=== PATIENT | male | born 1950 | race Caucasian/White ===

== ENCOUNTER 2016-07-03 11:21 | Outpatient (CLI) | payer MEDICARE, MEDICAID | END 2016-07-03 11:22 | disposition home or self-care (01) | DX: Z86.718 Personal history of other venous thrombosis and embolism (principal); I26.99 Other pulmonary embolism without acute cor pulmonale; Z79.01 Long term (current) use of anticoagulants ==

== ENCOUNTER 2016-08-04 11:13 | Outpatient (CLI) | payer MEDICARE, MEDICAID ==
[2016-08-04 18:57] LABS: INR 2.1 (0.8-1.2); PT - PROTHROMBIN TIME 24.3 secs (9.9-12.6)
== END 2016-08-04 11:14 ==
LOC: LAB.F 11:13
PROVIDERS: ATTEND Pharmacist
DX: Z86.718 Personal history of other venous thrombosis and embolism (principal); I26.99 Other pulmonary embolism without acute cor pulmonale; Z79.01 Long term (current) use of anticoagulants
CPT/HCPCS: 36415; 85610

== ENCOUNTER 2016-09-04 13:12 | Outpatient (CLI) | payer MEDICARE, MEDICAID | END 2016-09-04 13:13 | disposition home or self-care (01) | DX: I26.99 Other pulmonary embolism without acute cor pulmonale (principal); Z79.01 Long term (current) use of anticoagulants; Z86.718 Personal history of other venous thrombosis and embolism ==

== ENCOUNTER 2016-09-15 09:10 | Outpatient (CLI) | payer MEDICARE, MEDICAID | END 2016-09-15 09:11 | disposition home or self-care (01) | DX: I26.99 Other pulmonary embolism without acute cor pulmonale (principal); Z79.01 Long term (current) use of anticoagulants; Z86.718 Personal history of other venous thrombosis and embolism ==

== ENCOUNTER 2016-10-13 09:26 | Outpatient (CLI) | payer MEDICARE, MEDICAID | END 2016-10-13 09:27 | DX: Z86.718 Personal history of other venous thrombosis and embolism (principal); I26.99 Other pulmonary embolism without acute cor pulmonale; Z79.01 Long term (current) use of anticoagulants ==

== ENCOUNTER 2016-12-01 13:46 | Outpatient (CLI) | payer MEDICARE, MEDICAID ==
[2016-12-01 18:36] LABS: INR 2.3 (0.8-1.2)
== END 2016-12-01 13:47 | disposition home or self-care (01) ==
LOC: LAB.S 13:46
PROVIDERS: ATTEND Pharmacist
DX: Z86.718 Personal history of other venous thrombosis and embolism (principal)
CPT/HCPCS: 36415; 85610

== ENCOUNTER 2017-01-12 12:13 | Outpatient (CLI) | payer MEDICARE, MEDICAID ==
[2017-01-12 18:37] LABS: INR 2.6 (0.8-1.2); PT - PROTHROMBIN TIME 29.1 secs (9.9-12.6)
== END 2017-01-12 12:14 | disposition home or self-care (01) ==
LOC: LAB.S 12:13
PROVIDERS: ATTEND Pharmacist
DX: I26.99 Other pulmonary embolism without acute cor pulmonale (principal)
CPT/HCPCS: 36415; 85610

== ENCOUNTER 2017-02-12 09:32 | Outpatient (CLI) | payer MEDICARE, MEDICAID ==
[2017-02-12 17:53] LABS: INR 2.5 (0.8-1.2)
== END 2017-02-12 09:33 | disposition home or self-care (01) ==
LOC: LAB.F 09:32
PROVIDERS: ATTEND Pharmacist
DX: Z86.718 Personal history of other venous thrombosis and embolism (principal)
CPT/HCPCS: 36415; 85610

== ENCOUNTER 2017-02-16 20:26 | Outpatient (CLI) | payer MEDICARE, MEDICAID ==
[2017-02-16 18:48] LABS: ALBUMIN/GLOBULIN RATIO 1.3 (1.0-2.2); BILIRUBIN,TOTAL 0.4 mg/dL (0.2-1.0); BUN - BLOOD UREA NITROGEN 43 mg/dL (6-20); CALCIUM 9.6 mg/dL (8.5-10.3); CARBON DIOXIDE - CO2 25 mmol/L (21-32); CHLORIDE 102 mmol/L (101-111); CHOL/HDL RATIO 5.8 (<5.0); CHOLESTEROL 139 mg/dL; CREATININE 1.9 mg/dL (0.6-1.2); GFR - MDRD 36 (>89); GLUCOSE 110 mg/dL (70-100); HDL CHOLESTEROL 24 mg/dL; LDL/HDL RATIO 2.3 (<3.6); POTASSIUM 4.4 mmol/L (3.5-5.0); SODIUM 137 mmol/L (135-145); TOTAL PROTEIN 7.4 g/dL (6.7-8.2); TRIGLYCERIDES 303 mg/dL; VLDL CHOLESTEROL 61 mg/dL
[2017-02-16 19:09] LABS: BASOPHILS # (AUTO) 0.1 10^3/uL (0.0-0.1); BASOPHILS % (AUTO) 0.8 %; EOSINOPHILS # (AUTO) 0.5 10^3/uL (0.0-0.7); EOSINOPHILS % (AUTO) 5.1 %; HCT - HEMATOCRIT 34.8 % (42.0-52.0); HGB - HEMOGLOBIN 11.2 g/dL (14.0-18.0); LYMPHOCYTES # (AUTO) 1.8 10^3/uL (1.5-3.5); LYMPHOCYTES % (AUTO) 18.2 %; MEAN CORPUSCULAR HEMOGLOBIN 28.7 pg (27.0-31.0); MEAN CORPUSCULAR HGB CONC 32.3 g/dL (32.0-36.0); MEAN CORPUSCULAR VOLUME 88.7 fL (80.0-94.0); MEAN PLATELET VOLUME 8.4 fL (7.4-11.4); MONOCYTES # (AUTO) 0.5 10^3/uL (0.0-1.0); NEUTROPHILS # (AUTO) 6.8 10^3/uL (1.5-6.6); NEUTROPHILS % (AUTO) 70.9 %; RED BLOOD COUNT 3.93 10^6/uL (4.70-6.10); RED CELL DISTRIBUTION WIDTH 16.4 % (12.0-15.0); UNCORRECTED WHITE BLOOD COUNT 9.7 x10^3/uL; WHITE BLOOD COUNT 9.7 x10^3/uL (4.8-10.8)
[2017-02-16 20:00] LABS: HEMOGLOBIN A1C 0.58 g/dL
== END 2017-02-16 20:27 | disposition home or self-care (01) ==
LOC: LAB.S 20:26
PROVIDERS: ATTEND Family Medicine
DX: E11.9 Type 2 diabetes mellitus without complications (principal); E78.5 Hyperlipidemia, unspecified
CPT/HCPCS: 36415; 80053; 80061; 83036; 85025

== ENCOUNTER 2017-03-02 08:00 | Outpatient (CLI) | payer MEDICARE, MEDICAID | END 2017-03-02 23:59 | disposition home or self-care (01) | LOC: LAB.R 08:00 | PROVIDERS: ATTEND Family Medicine | DX: L97.512 Non-pressure chronic ulcer of other part of right foot with fat layer exposed (principal) | CPT/HCPCS: 87070; 87205 ==

== ENCOUNTER 2017-03-02 08:00 | Outpatient (CLI) | payer MEDICARE, MEDICAID | END 2017-03-02 08:01 | disposition home or self-care (01) | LOC: LAB.R 08:00 | PROVIDERS: ATTEND Family Medicine | DX: L97.311 Non-pressure chronic ulcer of right ankle limited to breakdown of skin (principal) ==

== ENCOUNTER 2017-03-19 13:52 | Outpatient (CLI) | payer MEDICARE, MEDICAID ==
[2017-03-19 18:14] LABS: INR 2.5 (0.8-1.2); PT - PROTHROMBIN TIME 28.4 secs (9.9-12.6)
== END 2017-03-19 13:53 | disposition home or self-care (01) ==
LOC: LAB.F 13:52
PROVIDERS: ATTEND Pharmacist
DX: Z86.718 Personal history of other venous thrombosis and embolism (principal); Z79.01 Long term (current) use of anticoagulants; I26.99 Other pulmonary embolism without acute cor pulmonale
CPT/HCPCS: 36415; 85610

== ENCOUNTER 2017-04-13 13:33 | Outpatient (CLI) | payer MEDICARE, MEDICAID ==
[2017-04-13 18:15] LABS: INR 1.9 (0.8-1.2); PT - PROTHROMBIN TIME 21.4 secs (9.9-12.6)
== END 2017-04-13 13:34 | disposition home or self-care (01) ==
LOC: LAB.S 13:33
PROVIDERS: ATTEND Pharmacist
DX: Z86.718 Personal history of other venous thrombosis and embolism (principal); Z79.01 Long term (current) use of anticoagulants; I26.99 Other pulmonary embolism without acute cor pulmonale
CPT/HCPCS: 36415; 85610

== ENCOUNTER 2017-06-08 13:38 | Outpatient (CLI) | payer MEDICARE, MEDICAID ==
[2017-06-08 18:51] LABS: INR 3.9 (0.8-1.2); PT - PROTHROMBIN TIME 41.7 secs (9.9-12.6)
== END 2017-06-08 13:39 | disposition home or self-care (01) ==
LOC: LAB.S 13:38
PROVIDERS: ATTEND Pharmacist
DX: Z86.718 Personal history of other venous thrombosis and embolism (principal); Z79.01 Long term (current) use of anticoagulants; I26.99 Other pulmonary embolism without acute cor pulmonale
CPT/HCPCS: 36415; 85610

== ENCOUNTER 2017-06-29 11:55 | Outpatient (CLI) | payer MEDICARE, MEDICAID ==
[2017-06-29 18:31] LABS: INR 1.7 (0.8-1.2); PT - PROTHROMBIN TIME 18.8 secs (9.9-12.6)
== END 2017-06-29 11:56 | disposition home or self-care (01) ==
LOC: LAB.S 11:55
PROVIDERS: ATTEND Pharmacist
DX: Z86.718 Personal history of other venous thrombosis and embolism (principal); I26.99 Other pulmonary embolism without acute cor pulmonale; Z79.01 Long term (current) use of anticoagulants
CPT/HCPCS: 36415; 85610

== ENCOUNTER 2017-07-13 08:00 | Outpatient (CLI) | payer MEDICARE, MEDICAID ==
[2017-07-13 17:36] LABS: PT - PROTHROMBIN TIME 22.5 secs (9.9-12.6)
[2017-07-13 17:51] LABS: BASOPHILS # (AUTO) 0.1 10^3/uL (0.0-0.1); BASOPHILS % (AUTO) 0.9 %; EOSINOPHILS # (AUTO) 0.4 10^3/uL (0.0-0.7); EOSINOPHILS % (AUTO) 5.3 %; HGB - HEMOGLOBIN 10.2 g/dL (14.0-18.0); LYMPHOCYTES # (AUTO) 1.5 10^3/uL (1.5-3.5); LYMPHOCYTES % (AUTO) 19.6 %; MEAN CORPUSCULAR HEMOGLOBIN 29.1 pg (27.0-31.0); MEAN CORPUSCULAR VOLUME 88.3 fL (80.0-94.0); MEAN PLATELET VOLUME 8.3 fL (7.4-11.4); MONOCYTES # (AUTO) 0.3 10^3/uL (0.0-1.0); MONOCYTES % (AUTO) 3.7 %; NEUTROPHILS # (AUTO) 5.5 10^3/uL (1.5-6.6); NEUTROPHILS % (AUTO) 70.5 %; PLT - PLATELET COUNT 211 10^3/uL (130-450); RED BLOOD COUNT 3.52 10^6/uL (4.70-6.10); RED CELL DISTRIBUTION WIDTH 15.7 % (12.0-15.0); WHITE BLOOD COUNT 7.7 x10^3/uL (4.8-10.8)
[2017-07-13 18:06] LABS: HB2 TOTAL 11.6 g/dL; HEMOGLOBIN A1C 0.54 g/dL; HEMOGLOBIN A1C % 6.4 % (4.6-6.2)
[2017-07-13 18:25] LABS: ALBUMIN 3.8 g/dL (3.2-5.5); ALBUMIN/GLOBULIN RATIO 1.3 (1.0-2.2); ALKALINE PHOSPHATASE 86 IU/L (42-121); ALT ALANINE AMINOTRANSFERASE 27 IU/L (10-60); AST ASPARTATE AMINOTRANSFERASE 25 IU/L (10-42); BILIRUBIN,TOTAL 0.4 mg/dL (0.2-1.0); BUN - BLOOD UREA NITROGEN 34 mg/dL (6-20); CALCIUM 9.6 mg/dL (8.5-10.3); CARBON DIOXIDE - CO2 27 mmol/L (21-32); CHLORIDE 103 mmol/L (101-111); CHOL/HDL RATIO 6.8 (<5.0); CHOLESTEROL 156 mg/dL; CREATININE 1.6 mg/dL (0.6-1.2); GFR - MDRD 44 (>89); GLUCOSE 155 mg/dL (70-100); HDL CHOLESTEROL 23 mg/dL; LDL CHOLESTEROL,CALCULATED 54 mg/dL; LDL/HDL RATIO 2.3 (<3.6); SODIUM 135 mmol/L (135-145); TOTAL PROTEIN 6.8 g/dL (6.7-8.2); VLDL CHOLESTEROL 79 mg/dL
== END 2017-07-13 08:01 ==
LOC: LAB.S 08:00
PROVIDERS: ATTEND Pharmacist
DX: E11.9 Type 2 diabetes mellitus without complications (principal); L97.311 Non-pressure chronic ulcer of right ankle limited to breakdown of skin; L97.511 Non-pressure chronic ulcer of other part of right foot limited to breakdown of skin; E78.5 Hyperlipidemia, unspecified; Z79.01 Long term (current) use of anticoagulants; Z86.718 Personal history of other venous thrombosis and embolism; I26.99 Other pulmonary embolism without acute cor pulmonale
CPT/HCPCS: 36415; 80053; 80061; 83036; 83721; 85025; 85610

== ENCOUNTER 2017-07-27 12:02 | Outpatient (CLI) | payer MEDICARE, MEDICAID ==
[2017-07-27 18:52] LABS: INR 2.4 (0.8-1.2); PT - PROTHROMBIN TIME 26.7 secs (9.9-12.6)
== END 2017-07-27 12:03 | disposition home or self-care (01) ==
LOC: LAB.S 12:02
PROVIDERS: ATTEND Pharmacist
DX: Z86.718 Personal history of other venous thrombosis and embolism (principal); Z79.01 Long term (current) use of anticoagulants; I26.99 Other pulmonary embolism without acute cor pulmonale
CPT/HCPCS: 36415; 85610

== ENCOUNTER 2017-08-17 08:00 | Outpatient (CLI) | payer MEDICARE, MEDICAID ==
[2017-08-17 17:49] LABS: PT - PROTHROMBIN TIME 22.3 secs (9.9-12.6)
== END 2017-08-17 08:01 | disposition home or self-care (01) ==
LOC: LAB.S 08:00
PROVIDERS: ATTEND Pharmacist
DX: Z86.718 Personal history of other venous thrombosis and embolism (principal); I26.99 Other pulmonary embolism without acute cor pulmonale; Z79.01 Long term (current) use of anticoagulants
CPT/HCPCS: 36415; 85610

== ENCOUNTER 2017-09-14 12:03 | Outpatient (CLI) | payer MEDICARE, MEDICAID ==
[2017-09-14 18:00] LABS: INR 3.1 (0.8-1.2); PT - PROTHROMBIN TIME 33.4 secs (9.9-12.6)
== END 2017-09-14 12:04 | disposition home or self-care (01) ==
LOC: LAB.S 12:03
PROVIDERS: ATTEND Pharmacist
DX: Z86.718 Personal history of other venous thrombosis and embolism (principal); Z79.01 Long term (current) use of anticoagulants; I26.99 Other pulmonary embolism without acute cor pulmonale
CPT/HCPCS: 36415; 85610

== ENCOUNTER 2017-09-16 08:00 | Outpatient (CLI) | payer MEDICARE, MEDICAID | END 2017-09-16 08:01 | LOC: LAB.R 08:00 | PROVIDERS: ATTEND Nurse Practitioner Family | DX: L08.9 Local infection of the skin and subcutaneous tissue, unspecified (principal) | CPT/HCPCS: 87070; 87205 ==

== ENCOUNTER 2017-10-26 08:00 | Outpatient (CLI) | payer MEDICARE, MEDICAID ==
[2017-10-26 18:01] LABS: INR 2.7 (0.8-1.2); PT - PROTHROMBIN TIME 29.4 secs (9.9-12.6)
== END 2017-10-26 08:01 | disposition home or self-care (01) ==
LOC: LAB.S 08:00
PROVIDERS: ATTEND Pharmacist
DX: I26.99 Other pulmonary embolism without acute cor pulmonale (principal); Z79.01 Long term (current) use of anticoagulants; Z86.718 Personal history of other venous thrombosis and embolism
CPT/HCPCS: 36415; 85610

== ENCOUNTER 2017-11-23 12:44 | Outpatient (CLI) | payer MEDICARE, MEDICAID ==
[2017-11-23 17:55] LABS: INR 3.9 (0.8-1.2); PT - PROTHROMBIN TIME 41.9 secs (9.9-12.6)
== END 2017-11-23 12:45 | disposition home or self-care (01) ==
LOC: LAB.S 12:44
PROVIDERS: ATTEND Pharmacist
DX: I26.99 Other pulmonary embolism without acute cor pulmonale (principal); Z79.01 Long term (current) use of anticoagulants; Z86.718 Personal history of other venous thrombosis and embolism
CPT/HCPCS: 36415; 85610

== ENCOUNTER 2017-12-07 10:30 | Outpatient (CLI) | payer MEDICARE, MEDICAID ==
[2017-12-07 18:10] LABS: INR 2.3 (0.8-1.2)
== END 2017-12-07 10:31 ==
LOC: LAB.S 10:30
PROVIDERS: ATTEND Pharmacist
DX: I26.99 Other pulmonary embolism without acute cor pulmonale (principal); Z79.01 Long term (current) use of anticoagulants; Z86.718 Personal history of other venous thrombosis and embolism
CPT/HCPCS: 36415; 85610

== ENCOUNTER 2017-12-28 10:55 | Outpatient (CLI) | payer MEDICARE, MEDICAID ==
[2017-12-28 17:29] LABS: INR 3.5 (0.8-1.2); PT - PROTHROMBIN TIME 37.7 secs (9.9-12.6)
== END 2017-12-28 10:56 | disposition home or self-care (01) ==
LOC: LAB.S 10:55
PROVIDERS: ATTEND Pharmacist
DX: I26.99 Other pulmonary embolism without acute cor pulmonale (principal); Z79.01 Long term (current) use of anticoagulants; Z86.718 Personal history of other venous thrombosis and embolism
CPT/HCPCS: 36415; 85610

== ENCOUNTER 2018-01-11 08:00 | Outpatient (CLI) | payer MEDICARE, MEDICAID ==
[2018-01-11 18:41] LABS: INR 1.1 (0.8-1.2); PT - PROTHROMBIN TIME 11.9 secs (9.9-12.6)
== END 2018-01-11 08:01 | disposition home or self-care (01) ==
LOC: LAB.S 08:00
PROVIDERS: ATTEND Pharmacist
DX: I26.99 Other pulmonary embolism without acute cor pulmonale (principal); Z86.718 Personal history of other venous thrombosis and embolism; Z79.01 Long term (current) use of anticoagulants
CPT/HCPCS: 36415; 85610

== ENCOUNTER 2018-10-21 13:52 | Outpatient (CLI) | payer MEDICARE, MEDICAID ==
[2018-10-21 17:15] LABS: BASOPHILS # (AUTO) 0.1 10^3/uL (0.0-0.1); BASOPHILS % (AUTO) 0.8 %; EOSINOPHILS # (AUTO) 0.5 10^3/uL (0.0-0.7); EOSINOPHILS % (AUTO) 6.6 %; HGB - HEMOGLOBIN 10.5 g/dL (14.0-18.0); LYMPHOCYTES # (AUTO) 1.4 10^3/uL (1.5-3.5); LYMPHOCYTES % (AUTO) 18.1 %; MEAN CORPUSCULAR HEMOGLOBIN 29.5 pg (27.0-31.0); MEAN CORPUSCULAR VOLUME 89.5 fL (80.0-94.0); MEAN PLATELET VOLUME 8.7 fL (7.4-11.4); MONOCYTES # (AUTO) 0.4 10^3/uL (0.0-1.0); MONOCYTES % (AUTO) 5.3 %; NEUTROPHILS # (AUTO) 5.5 10^3/uL (1.5-6.6); NEUTROPHILS % (AUTO) 69.2 %; PLT - PLATELET COUNT 168 10^3/uL (130-450); RED BLOOD COUNT 3.54 10^6/uL (4.70-6.10); RED CELL DISTRIBUTION WIDTH 14.5 % (12.0-15.0); WHITE BLOOD COUNT 7.9 x10^3/uL (4.8-10.8)
[2018-10-21 17:21] LABS: CREATININE 1.9 mg/dL (0.6-1.2)
== END 2018-10-21 13:53 | disposition home or self-care (01) ==
LOC: LAB.F 13:52
PROVIDERS: ATTEND Pharmacist
DX: I82.409 Acute embolism and thrombosis of unspecified deep veins of unspecified lower extremity (principal); I63.9 Cerebral infarction, unspecified; Z79.01 Long term (current) use of anticoagulants
CPT/HCPCS: 36415; 82565; 85025

== ENCOUNTER 2019-02-16 09:19 | Outpatient (CLI) | payer MEDICARE, MEDICAID ==
[2019-02-16 18:15] LABS: HB2 TOTAL 9.8 g/dL; HEMOGLOBIN A1C 0.38 g/dL; HEMOGLOBIN A1C % 5.7 % (4.6-6.2)
[2019-02-16 18:21] LABS: ALBUMIN 3.8 g/dL (3.2-5.5); ALBUMIN/GLOBULIN RATIO 1.1 (1.0-2.2); ALKALINE PHOSPHATASE 80 IU/L (42-121); ALT ALANINE AMINOTRANSFERASE 19 IU/L (10-60); AST ASPARTATE AMINOTRANSFERASE 16 IU/L (10-42); BILIRUBIN,TOTAL 0.5 mg/dL (0.2-1.0); BUN - BLOOD UREA NITROGEN 43 mg/dL (6-20); CALCIUM 10.1 mg/dL (8.5-10.3); CARBON DIOXIDE - CO2 28 mmol/L (21-32); CHLORIDE 104 mmol/L (101-111); CHOL/HDL RATIO 4.8 (<5.0); CHOLESTEROL 105 mg/dL; CREATININE 1.9 mg/dL (0.6-1.2); GFR - MDRD 36 (>89); GLUCOSE 88 mg/dL (70-100); HDL CHOLESTEROL 22 mg/dL; LDL CHOLESTEROL,CALCULATED 47 mg/dL; LDL/HDL RATIO 2.1 (<3.6); SODIUM 141 mmol/L (135-145); TOTAL PROTEIN 7.3 g/dL (6.7-8.2); VLDL CHOLESTEROL 36 mg/dL
== END 2019-02-16 09:20 | disposition home or self-care (01) ==
LOC: LAB.S 09:19
PROVIDERS: ATTEND Internal Medicine
DX: E78.5 Hyperlipidemia, unspecified (principal); E11.9 Type 2 diabetes mellitus without complications
CPT/HCPCS: 36415; 80053; 80061; 83036; 83721

== ENCOUNTER 2019-04-26 13:56 | Outpatient (CLI) | payer MEDICARE, MEDICAID ==
[2019-04-26 17:19] LABS: BASOPHILS # (AUTO) 0.1 10^3/uL (0.0-0.1); BASOPHILS % (AUTO) 0.8 %; EOSINOPHILS # (AUTO) 0.7 10^3/uL (0.0-0.7); EOSINOPHILS % (AUTO) 7.5 %; HGB - HEMOGLOBIN 10.4 g/dL (14.0-18.0); LYMPHOCYTES # (AUTO) 1.9 10^3/uL (1.5-3.5); LYMPHOCYTES % (AUTO) 20.8 %; MEAN CORPUSCULAR HEMOGLOBIN 29.5 pg (27.0-31.0); MEAN CORPUSCULAR HGB CONC 31.3 g/dL (32.0-36.0); MEAN CORPUSCULAR VOLUME 94.1 fL (80.0-94.0); MEAN PLATELET VOLUME 11.1 fL (7.4-11.4); MONOCYTES # (AUTO) 0.5 10^3/uL (0.0-1.0); MONOCYTES % (AUTO) 5.9 %; NEUTROPHILS # (AUTO) 5.8 10^3/uL (1.5-6.6); NEUTROPHILS % (AUTO) 64.7 %; PLT - PLATELET COUNT 160 10^3/uL (130-450); RED BLOOD COUNT 3.53 10^6/uL (4.70-6.10); RED CELL DISTRIBUTION WIDTH 13.7 % (12.0-15.0); WHITE BLOOD COUNT 8.9 x10^3/uL (4.8-10.8)
== END 2019-04-26 13:57 | disposition home or self-care (01) ==
LOC: LAB.S 13:56
PROVIDERS: ATTEND Pharmacist
DX: I82.409 Acute embolism and thrombosis of unspecified deep veins of unspecified lower extremity (principal); I63.9 Cerebral infarction, unspecified; Z79.01 Long term (current) use of anticoagulants
CPT/HCPCS: 36415; 82565; 85025

== ENCOUNTER 2020-06-11 11:51 | Outpatient (CLI) | payer OTHER, MEDICARE, MEDICAID ==
--- NOTE | 2020-06-11 16:40 | Ultrasound Report ---
PROCEDURE: Retroperitoneal INDICATIONS: CKD STAGE IV TECHNIQUE: Real-time scanning was performed of the retroperitoneal organs, with image documentation. COMPARISON: None. FINDINGS: Kidneys: Kidneys are normal in size. Right kidney measures 9.4 cm long; left kidney measures 10.2 c m long. Right renal cortical thickness is 1.3 cm; left renal cortical thickness is 1.1 cm. Multiple bilateral foci of increased echogenicity are identified the largest is identified on the right measu ring 5 x 4 x 5 mm. No solid masses, or hydronephrosis. Bladder: Prevoid volume 2 96 cc, post void residual 10 7 cc. IMPRESSION: 1. Bilateral nonobstructing renal calculi. Reviewed by: Tianna Simpson MD on 06/11/2020 4:39 PM PST Approved by: Tianna Simpson MD on 06/11/2020 4:39 PM PST Station ID: [id number]
== END 2020-06-11 11:52 | disposition home or self-care (01) ==
LOC: DI 11:51
PROVIDERS: ATTEND Internal Medicine Nephrology
DX: N18.4 Chronic kidney disease, stage 4 (severe) (principal); N20.0 Calculus of kidney

== ENCOUNTER 2020-07-28 12:42 | Outpatient (CLI) | payer OTHER ==
--- NOTE | 2020-07-28 15:36 | XRAY Report ---
PROCEDURE: Chest 2 View X-Ray INDICATIONS: HYPERTENSION TECHNIQUE: 2 view(s) of the chest. COMPARISON: Limiting comparison with 06/08/2009 FINDINGS: Exam is limited given patient's positioning. The lateral view is nearly nondiagnostic given overlying humerus and soft tissues. Surgical changes and devices: None. Lungs and pleura: There is no focal consolidation. There is interstitial prominence most prominently within the left lung. No pleural effusion or pneumothorax.. Mediastinum: Mediastinal contours are normal. Heart size is normal. Vascular calcifications throug hout the aorta. Bones and chest wall: No suspicious bony abnormalities. Soft tissues appear unremarkable. IMPRESSION: Limited exam. Mild interstitial opacities, left greater than right are nonspecific and may represent pulmonary freya a versus atypical infection. Reviewed by: Anthony Adame DO on 07/28/2020 2:35 PM [facility] Approved by: Anthony Adame DO on 07/28/2020 2:35 PM [facility] Station ID: [id number]
== END 2020-07-28 12:43 | disposition home or self-care (01) ==
LOC: DI.S 12:42
PROVIDERS: ATTEND Internal Medicine Nephrology
DX: I13.0 Hypertensive heart and chronic kidney disease with heart failure and stage 1 through stage 4 chronic kidney disease, or unspecified chronic kidney disease (principal); N18.4 Chronic kidney disease, stage 4 (severe); I50.9 Heart failure, unspecified

== ENCOUNTER 2020-08-02 13:04 | Outpatient (CLI) | payer OTHER ==
[2020-08-02 15:26] LABS: ALBUMIN 4.1 g/dL (3.2-5.5); CALCIUM 10.5 mg/dL (8.5-10.3); CREATININE 2.1 mg/dL (0.6-1.2); PHOSPHORUS 2.9 mg/dL (2.5-4.6)
== END 2020-08-02 13:05 | disposition home or self-care (01) ==
LOC: LAB.S 13:04
PROVIDERS: ATTEND Nurse Practitioner Family
DX: R35.0 Frequency of micturition (principal)
CPT/HCPCS: 36415; 80069; 87086

== ENCOUNTER 2021-01-07 10:22 | Outpatient (CLI) | payer OTHER ==
[2021-01-07 15:20] LABS: BILIRUBIN,URINE NEGATIVE (NEGATIVE); GLUCOSE, URINE (UA) NEGATIVE (NEGATIVE); KETONES,URINE (UA) NEGATIVE (NEGATIVE); LEUKOCYTE ESTERASE, URINE NEGATIVE (NEGATIVE); NITRITE,URINE NEGATIVE (NEGATIVE); OCCULT BLOOD,URINE NEGATIVE (NEGATIVE); PROTEIN,URINE 30 mg/dL (NEGATIVE); UROBILINOGEN,URINE 0.2 (NORMAL) E.U./dL (NORMAL)
[2021-01-07 15:21] LABS: CLARITY,URINE CLEAR (CLEAR)
[2021-01-07 15:23] LABS: BACTERIA,URINE None Seen /HPF (None Seen); RBC,URINE 0-5 /HPF (0-5); SQUAMOUS EPITHELIAL CELL,UR RARE Squamous (<= Few); WBC,URINE 0-3 /HPF (0-3)
[2021-01-07 16:06] LABS: ALBUMIN 4.2 g/dL (3.2-5.5); CALCIUM 10.3 mg/dL (8.5-10.3); PHOSPHORUS 2.5 mg/dL (2.5-4.6); POTASSIUM 3.4 mmol/L (3.5-5.0)
== END 2021-01-07 10:23 | disposition home or self-care (01) ==
LOC: LAB.S 10:22
PROVIDERS: ATTEND Internal Medicine Nephrology
DX: I13.0 Hypertensive heart and chronic kidney disease with heart failure and stage 1 through stage 4 chronic kidney disease, or unspecified chronic kidney disease (principal); N18.4 Chronic kidney disease, stage 4 (severe); D51.8 Other vitamin B12 deficiency anemias; I50.9 Heart failure, unspecified
CPT/HCPCS: 36415; 80069; 81001; 82570; 84156

== ENCOUNTER 2021-12-10 13:46 | Outpatient (CLI) | payer MEDICARE | END 2021-12-10 13:47 | disposition home or self-care (01) | LOC: DI 13:46 | PROVIDERS: ATTEND Nurse Practitioner Family | DX: R01.1 Cardiac murmur, unspecified (principal); I72.8 Aneurysm of other specified arteries | CPT/HCPCS: 93306 ==

== ENCOUNTER 2023-01-29 08:00 | Outpatient (CLI) | payer OTHER, MEDICAID | END 2023-01-29 23:59 | disposition home or self-care (01) | LOC: LAB 08:00 | PROVIDERS: ATTEND Emergency Medicine | DX: E11.621 Type 2 diabetes mellitus with foot ulcer (principal); L97.519 Non-pressure chronic ulcer of other part of right foot with unspecified severity | CPT/HCPCS: 87070; 87205 ==

== ENCOUNTER 2023-06-23 22:28 | Outpatient (CLI) | payer MEDICARE, MEDICAID | END 2023-06-23 23:59 | disposition EMS.NT | LOC: EMS 22:28 | DX: R53.1 Weakness (principal) ==

== ENCOUNTER 2023-06-25 05:39 | Outpatient (CLI) | payer MEDICARE, MEDICAID | END 2023-06-25 23:59 | disposition EMS.NT | LOC: EMS 05:39 | DX: Z03.89 Encounter for observation for other suspected diseases and conditions ruled out (principal) ==

== ENCOUNTER 2023-06-25 08:00 | Outpatient (CLI) | payer MEDICARE, MEDICAID ==
--- NOTE | 2023-06-25 18:15 | XRAY Report ---
PROCEDURE: Chest 2V INDICATIONS: ACUTE COUGH TECHNIQUE: 2 views of the chest were acquired. COMPARISON: 07/28/2020 FINDINGS: Surgical changes and devices: None. Lungs and pleura: No significant pleural effusion. No pneumothorax. No dense consolidation. Mild dif fuse interstitial prominence with mild perihilar airway thickening. Mediastinum: Mediastinal contours appear stable. Heart size is stable. Bones and chest wall: No suspicious bony lesions. Overlying soft tissues appear unremarkable. IMPRESSION: Diffuse interstitial prominence and minimal perihilar airway thickening. Findings are nonspecific but may represent an infectious or inflammatory process with viral or atypical organism most likely. Oth er considerations include mild pulmonary edema if clinically appropriate. No focal consolidation seen . Reviewed by: Santiago Hernandez MD on 06/25/2023 6:14 PM PST Approved by: Santiago Hernandez MD on 06/25/2023 6:14 PM [facility] Station ID: [id number]
== END 2023-06-25 23:59 | disposition home or self-care (01) ==
LOC: DI.S 08:00
PROVIDERS: ATTEND Registered Nurse
DX: R91.8 Other nonspecific abnormal finding of lung field (principal)

== ENCOUNTER 2023-07-23 14:25 | Outpatient (CLI) | payer MEDICARE, MEDICAID ==
--- NOTE | 2023-07-23 15:14 | XRAY Report ---
PROCEDURE: Chest 2V INDICATIONS: PNEUMONIA TECHNIQUE: 2 views of the chest were acquired. COMPARISON: 2 views of the chest dated 06/25/2023 FINDINGS: Surgical changes and devices: None. Lungs and pleura: There is diffuse interstitial prominence. No focal airspace opacities. No pleural effusion or pneumothorax. Mediastinum: Mediastinal contours appear normal. Heart size is normal. Bones and chest wall: No suspicious bony lesions. Overlying soft tissues appear unremarkable. IMPRESSION: Interstitial prominence suggesting fluid overload. Reviewed by: Madisyn Santo MD on 07/23/2023 3:13 PM PST Approved by: Madisyn Santo MD on 07/23/2023 3:13 PM PST Station ID: [id number]
== END 2023-07-23 14:26 | disposition home or self-care (01) ==
LOC: DI 14:25
PROVIDERS: ATTEND Registered Nurse
DX: J18.9 Pneumonia, unspecified organism (principal); R05.1 Acute cough; R91.8 Other nonspecific abnormal finding of lung field

== ENCOUNTER 2024-02-25 08:00 | Outpatient (CLI) | payer MEDICAID, MEDICARE, OTHER ==
--- NOTE | 2024-02-25 16:31 | XRAY Report ---
PROCEDURE: Foot 3+V RT INDICATIONS: RIGHT FOOT PAIN TECHNIQUE: 3 views of the foot were acquired. COMPARISON: None. FINDINGS: Diffuse osseous demineralization, which limits assessment of fractures. No fracture or dislocation. T he Lisfranc interval is preserved on the nonweightbearing view. Mild hallux valgus with lateralizatio n of the hallux sesamoids. Vascular calcifications. IMPRESSION: No fracture or dislocation of the right foot. Reviewed by: Son May MD on 02/25/2024 4:29 PM PDT Approved by: Son May MD on 02/25/2024 4:29 PM PDT Station ID: [id number]
== END 2024-02-25 23:59 | disposition home or self-care (01) ==
LOC: DI.S 08:00
PROVIDERS: ATTEND Physician Assistant
DX: M79.671 Pain in right foot (principal)

== ENCOUNTER 2024-03-03 08:12 | Day surgery (SDC) | payer OTHER ==
[2024-03-03] MEDS: LACTATED RINGERS 1,000 ML IV ONE (08:42)
--- NOTE | 2024-03-03 09:16 | HISTORY & PHYSICAL EXAMINATION ---
Chief Complaint - Chief Complaint Chief Complaint: here for colonoscopy History of Present Illness - History Obtained From Records Reviewed: yes History obtained from: family Exam Limitations: does not speak due to cva many years ago. good understanding - History of Present Illness HPI Comment/Other: positive fit while taking eliquis. 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 Meds/Allgy - Home Medications Home Medications: Ambulatory Orders Medication Instructions Recorded Confirmed Baclofen 5 mg PO BID 06/08/13 03/01/24 Metoprolol Succinate [Toprol Xl] 12.5 mg PO BID 06/08/13 03/01/24 Sertraline [Zoloft] 150 mg PO DAILY 06/08/13 03/01/24 Atorvastatin Calcium 40 mg PO DAILY 05/29/16 03/01/24 hydroCHLOROthiazide [Hydrodiuril] 25 mg PO DAILY 05/29/16 03/01/24 levETIRAcetam [Keppra] 500 mg PO BID 05/29/16 03/01/24 Apixaban [Eliquis] 2.5 mg PO BID 03/05/23 03/01/24 Cholecalciferol (Vitamin D3) 25 mcg PO DAILY 03/05/23 03/01/24 [Vitamin D3] Montelukast [Singulair] 10 mg PO QPM 03/05/23 03/01/24 Albuterol Sulfate 1.25 mg IH DAILY 03/01/24 03/01/24 Doxycycline Hyclate [Vibramycin] 100 mg PO BID 03/01/24 03/01/24 Empagliflozin [Jardiance] 12.5 mg PO DAILY 03/01/24 03/01/24 amLODIPine [Norvasc] 25 mg PO DAILY 03/01/24 03/01/24 - Allergies Allergies/Adverse Reactions: Allergies Allergy/AdvReac Type Severity Reaction Status Date / Time Penicillins Allergy Severe Respiratory Unverified 11/24/13 13:37 Review of Systems - Other Findings Other Findings: 10 pt ros as above otherwise unremarkable Exam - Vital Signs Reviewed Vital Signs: Yes - Physical Exam General Appearance: positive: No acute distress, Alert Eyes Bilateral: positive: PERRL, EOMI ENT: positive: No signs of dehydration Neck: positive: No JVD, Trachea midline Respiratory: positive: No respiratory distress Cardiovascular: positive: Irregularly irregular Abdomen: positive: No distention Neurologic/Psychiatric: positive: Oriented x3, Other (right arm paralysis) Conclusion/Plan - Problem List (1) Colon cancer screening Conclusion/Plan: here for colonoscopy. parq held and consent obtained
[2024-03-03] MEDS ORDERED: PROPOFOL 500 MG/50 ML 500 MG/50 ML VIAL ONE (09:27)
--- NOTE | 2024-03-03 09:31 | ANESTHESIA ---
Pre-Anesthesia VS, & Labs - Diagnosis screening - Procedure colonoscopy Height: 5 ft 10 in - NPO >8 hours Home Medications and Allergies Home Medications: Ambulatory Orders Albuterol Sulfate 1.25 mg IH DAILY 03/01/24 Doxycycline Hyclate [Vibramycin] 100 mg PO BID 03/01/24 Empagliflozin [Jardiance] 12.5 mg PO DAILY 03/01/24 amLODIPine [Norvasc] 25 mg PO DAILY 03/01/24 Baclofen 5 mg PO BID 06/08/13 Metoprolol Succinate [Toprol Xl] 12.5 mg PO BID 06/08/13 Sertraline [Zoloft] 150 mg PO DAILY 06/08/13 Atorvastatin Calcium 40 mg PO DAILY 05/29/16 hydroCHLOROthiazide [Hydrodiuril] 25 mg PO DAILY 05/29/16 levETIRAcetam [Keppra] 500 mg PO BID 05/29/16 Apixaban [Eliquis] 2.5 mg PO BID 03/05/23 Cholecalciferol (Vitamin D3) [Vitamin D3] 25 mcg PO DAILY 03/05/23 Montelukast [Singulair] 10 mg PO QPM 03/05/23 Albuterol Sulfate 1.25 mg IH DAILY 03/01/24 Doxycycline Hyclate [Vibramycin] 100 mg PO BID 03/01/24 Empagliflozin [Jardiance] 12.5 mg PO DAILY 03/01/24 amLODIPine [Norvasc] 25 mg PO DAILY 03/01/24 Allergies/Adverse Reactions: Allergies Allergy/AdvReac Type Severity Reaction Status Date / Time Penicillins Allergy Severe Respiratory Unverified 11/24/13 13:37 Anes History & Medical History - Anesthetic History Anesthesia Complications: reports: No previous complications Family history of Anesthesia Complications: Denies Family history of Malignant Hyperthermia: Denies - Medical History Cardiovascular: reports: Congestive heart failure, Hypertension Gastrointestinal: reports: GERD, Other Neuro: reports: CVA, Other (R sided paralysis, aphasic, wheelchair bound) Musculoskeletal: reports: Other Endocrine/Autoimmune: reports: Type 2 diabetes Skin: reports: Other Smoking Status: Former smoker Psychosocial: reports: No issues indicated History of Cancer?: No Exam General: Alert, Oriented x3, Cooperative, Other (pt aphasic) Dental: WNL Mouth Openin Fingerbreadth Neck Mobility: Normal Mallampati classification: II Thyromental Distance: 4-6 cm Respiratory: Lungs clear Cardiovascular: Regular rate Plan Anesthesia Type: Total IV Consent for Procedure(s) Verified and Reviewed: Yes Code Status: Attempt Resuscitation ASA classification: 3-Severe systemic disease Is this case an emergency?: No
[2024-03-03] MEDS ORDERED: VASOPRESSIN 20 UNIT/ML VIAL ONE (10:07)
--- NOTE | 2024-03-03 11:55 | ANESTHESIA POST OP EVALUATION ---
Anesthesia Post Eval - Post Anesthesia Eval CV Function Including HR & BP: Stable Pain Control: Satisfactory Nausea & Vomiting: Negative Mental Status: Baseline Respiratory Status: Airway Patent Hydration Status: Satisfactory Anesthesia Complications: None
== END 2024-03-03 08:13 | disposition home or self-care (01) ==
LOC: SDS 08:12
PROVIDERS: ATTEND Surgery
PROC: 0DBL8ZZ Excision of Transverse Colon, Via Natural or Artificial Opening Endoscopic (ICD-10-PCS; 2024-03-03)
PROC: 0DBP8ZZ Excision of Rectum, Via Natural or Artificial Opening Endoscopic (ICD-10-PCS; 2024-03-03)
PROC: 0DBK8ZZ Excision of Ascending Colon, Via Natural or Artificial Opening Endoscopic (ICD-10-PCS; principal; 2024-03-03 09:00)
DX: Z12.11 Encounter for screening for malignant neoplasm of colon (principal); D12.3 Benign neoplasm of transverse colon; D12.2 Benign neoplasm of ascending colon; D12.8 Benign neoplasm of rectum; I11.0 Hypertensive heart disease with heart failure; I50.9 Heart failure, unspecified; E11.9 Type 2 diabetes mellitus without complications; Z79.84 Long term (current) use of oral hypoglycemic drugs; Z79.01 Long term (current) use of anticoagulants; Z99.3 Dependence on wheelchair; I69.951 Hemiplegia and hemiparesis following unspecified cerebrovascular disease affecting right dominant side; I69.928 Other speech and language deficits following unspecified cerebrovascular disease; Z87.891 Personal history of nicotine dependence
CPT/HCPCS: 45380; J7120